=== PATIENT | male | born 1995 | race African-American/Black ===

== ENCOUNTER 2018-11-08 18:04 | Emergency (ER) | payer OTHER ==
[~2018-11-08] VITALS: Ht 175.3 cm; Wt 102.3 kg
[2018-11-08 19:28] LABS: HEMATOCRIT 43.2 % (42.0-52.0); HEMOGLOBIN 14.7 g/dl (13.5-17.5); MEAN CORPUSCULAR HEMOGLOBIN 28.7 pg (27.0-33.0); MEAN CORPUSCULAR VOLUME 84.2 fl (80.0-96.0); PLATELET COUNT, AUTOMATED 304 10^3/uL (150-450); RED BLOOD COUNT 5.13 10^6/uL (4.30-6.10); WHITE BLOOD COUNT 7.1 10^3/uL (4.0-10.0)
[2018-11-08 19:48] LABS: AMPHETAMINES LEVEL URINE NEGATIVE (NEGATIVE); BARBITURATES URINE NEGATIVE (NEGATIVE); BENZODIAZEPINES URINE NEGATIVE (NEGATIVE); CANNABINOIDS URINE NEGATIVE (NEGATIVE); COCAINE METABOLITE URINE NEGATIVE (NEGATIVE); METHADONE URINE NEGATIVE (NEGATIVE); OPIATES URINE NEGATIVE (NEGATIVE); PHENCYCLIDINE URINE NEGATIVE (NEGATIVE)
[2018-11-08 19:59] LABS: ACETAMINOPHEN LEVEL < 2.0 UG/ML (10.0-30.0); ALBUMIN 4.2 GM/DL (3.2-5.2); ALT/SGPT 45 U/L (12-78); BILIRUBIN,DIRECT 0.1 MG/DL (0.0-0.2); BILIRUBIN,TOTAL 0.4 MG/DL (0.2-1.0); BLOOD UREA NITROGEN 18 MG/DL (7-18); CALCIUM LEVEL 9.2 MG/DL (8.5-10.1); CARBON DIOXIDE LEVEL 26 MEQ/L (21-32); CHLORIDE LEVEL 105 MEQ/L (98-107); CREATININE FOR GFR 1.47 MG/DL (0.70-1.30); ETHYL ALCOHOL (ETHANOL) < 0.003 % (0.000-0.010); GLOMERULAR FILTRATION RATE > 60.0 (>60); GLUCOSE, FASTING 102 MG/DL (70-100); SALICYLATE LEVEL < 1.7 MG/DL (5.0-30.0); SODIUM LEVEL 139 MEQ/L (136-145); TOTAL PROTEIN 7.8 GM/DL (6.4-8.2)
[2018-11-08 21:20] VITALS: BP 139/89
== END 2018-11-08 21:21 | disposition home or self-care (01) ==
LOC: M ED 18:04
DX: F10.20 Alcohol dependence, uncomplicated (principal)
CPT/HCPCS: 36415; 80048; 80076; 80307; 84443; 85027; 99284; G0480

== ENCOUNTER 2019-03-18 09:52 | Emergency (ER) | payer OTHER ==
[~2019-03-18] VITALS: Ht 175.3 cm; Wt 96.8 kg
[2019-03-18] MEDS ORDERED: NS 1,000 ML IV ONE (10:15)
[2019-03-18] MEDS ORDERED: METOCLOPRAMIDE 10 MG TAB PO ONE (10:15)
[2019-03-18] MEDS ORDERED: ACETAMINOPHEN 500 MG TAB PO ONE (10:15)
[2019-03-18 10:30] LABS: BASO % 0.3 % (0.0-1.0); EOS % 0.1 % (0.0-3.0); HEMATOCRIT 42.9 % (42.0-52.0); HEMOGLOBIN 14.8 g/dl (13.5-17.5); LYMPH # 1.6 10^3/uL (1.5-6.5); LYMPH % 20.1 % (24.0-44.0); MEAN CORPUSCULAR HEMOGLOBIN 28.2 pg (27.0-33.0); MEAN CORPUSCULAR HGB CONC 34.5 g/dl (32.0-36.5); MEAN CORPUSCULAR VOLUME 81.9 fl (80.0-96.0); MONO # 0.5 10^3/uL (0.0-0.8); MONO % 6.5 % (0.0-5.0); NEUTROPHILS # 5.7 10^3/uL (1.8-7.7); NEUTROPHILS % 72.7 % (36.0-66.0); PLATELET COUNT, AUTOMATED 306 10^3/uL (150-450); RED BLOOD COUNT 5.24 10^6/uL (4.30-6.10); WHITE BLOOD COUNT 7.8 10^3/uL (4.0-10.0)
--- NOTE | 2019-03-18 10:41 | REP ---
Clinical: Trauma. Technique: AP, lateral, bilateral oblique and sunrise views right knee . Findings: The osseous structures and joint spaces are intact and normal. There is no evidence for acute fracture or dislocation. No joint effusion is appreciated. Surrounding soft tissues are unremarkable. No subcutaneous emphysema or radiodense foreign body. Impression: No acute fracture or dislocation. Electronically Signed by Kuldip Almaguer MD 03/18/2019 10:33 A
--- NOTE | 2019-03-18 10:41 | REP ---
Clinical: Trauma . Technique: AP, lateral, bilateral oblique views right ankle . Findings: Lateral swelling noted. No acute fracture or dislocation. Skeletal structures and joint spaces are intact and normal. Ankle mortise appears stable. No subcutaneous emphysema or radiodense foreign body. Impression: Lateral swelling. No acute fracture or dislocation. Electronically Signed by Kuldip Almaguer MD 03/18/2019 10:32 A
--- NOTE | 2019-03-18 10:41 | REP ---
Clinical: Trauma . Comparison: None . Technique: PA and lateral. Findings: The mediastinum and cardiac silhouette are normal. The lung lugo are clear and without acute consolidation, effusion, or pneumothorax. The skeletal structures are intact and normal. Impression: 1. No acute cardiopulmonary process. Electronically Signed by Kuldip Almaguer MD 03/18/2019 10:34 A
[2019-03-18 10:54] LABS: ALT/SGPT 38 U/L (12-78); BILIRUBIN,TOTAL 0.3 MG/DL (0.2-1.0); BLOOD UREA NITROGEN 10 MG/DL (7-18); CALCIUM LEVEL 8.7 MG/DL (8.5-10.1); CARBON DIOXIDE LEVEL 28 MEQ/L (21-32); CHLORIDE LEVEL 106 MEQ/L (98-107); CREATININE FOR GFR 1.19 MG/DL (0.70-1.30); GLOMERULAR FILTRATION RATE > 60.0 (>60); GLUCOSE, FASTING 111 MG/DL (70-100); SODIUM LEVEL 143 MEQ/L (136-145); TOTAL PROTEIN 8.1 GM/DL (6.4-8.2)
[2019-03-18] MEDS ORDERED: ISOVUE-370 76% 100ML VIAL (Q9967) As Ordered ONE (11:01)
[2019-03-18] MEDS ORDERED: MOBI4TAB PO (11:32)
[2019-03-18] MEDS ORDERED: ZANA4TAB PO (11:32)
--- NOTE | 2019-03-18 11:32 | REP ---
Clinical: Trauma . Comparison: None . Findings: The ventricles, sulci, and cisterns are normal in position and appearance. Leavitt-white differentiation is maintained. No acute intracranial hemorrhage, mass/mass effect, pathology or trauma/injury. No evidence for acute infarction. No extra-axial fluid collection. Calvarium is intact. Paranasal sinuses and mastoid air cells are clear. Impression: Normal noncontrast head CT. No evidence for acute intracranial pathology or trauma/injury. Electronically Signed by Kuldip Almaguer MD 03/18/2019 11:24 A
--- NOTE | 2019-03-18 11:37 | REP ---
Clinical: Trauma. Technique: Axial contrast enhanced images from the skull base to the thoracic inlet with coronal and sagittal re-formations using 100 ml Isovue 370 intravenous contrast material. Findings: Vascular structures in the neck are normal and there is no evidence for vascular injury. Soft tissues throughout the neck are symmetric and unremarkable. A few mildly prominent right-sided submandibular lymph nodes are identified and nonspecific. No soft tissue traumatic injury is appreciated. No hematoma or subcutaneous infiltration identified. The airway remains patent. The sinuses and mastoid air cells are clear. The osseous structures are intact. The bilateral orbits are symmetric and normal. Impression: Normal contrast enhanced CT of the neck. Electronically Signed by Kuldip Almaguer MD 03/18/2019 11:28 A
[2019-03-18 11:42] VITALS: BP 129/93
== END 2019-03-18 11:44 | disposition home or self-care (01) ==
LOC: M ED 09:52
DX: S90.01XA Contusion of right ankle, initial encounter (principal); S80.01XA Contusion of right knee, initial encounter; S10.81XA Abrasion of other specified part of neck, initial encounter; V49.59XA Passenger injured in collision with other motor vehicles in traffic accident, initial encounter; Y92.410 Unspecified street and highway as the place of occurrence of the external cause; R07.89 Other chest pain; M54.2 Cervicalgia; F10.229 Alcohol dependence with intoxication, unspecified; J30.2 Other seasonal allergic rhinitis
CPT/HCPCS: 70450; 70491; 71046; 73564; 73610; 80053; 85025; 96360; 99284; Q9967

== ENCOUNTER → 2020-06-10 | Outpatient (CLI) | payer OTHER ==
[~2020-06-10] MED LIST: MOBI4TAB PO; ZANA4TAB PO
--- NOTE | 2020-06-27 14:46 | SLEEPCENT ---
DATE: 06/10/2020 ORDERED BY: Dr. Anthony Nocturnal polysomnography with multiple sleep latency testing was ordered for evaluation of this patient with excessive somnolence, insomnia, and morning headaches as well as a history of snoring. There was 8 hours and 37 minutes of data reviewed. There was 317 minutes of sleep identified. Sleep latency was prolonged at 46.5 minutes. REM latency was also prolonged at 140 minutes. Sleep architecture once established was fair with periods of wake and some fragmentation, resulting in a reduced sleep efficiency of 61.9%. The electrocardiogram showed a sinus rhythm with an average heart rate of 62 beats per minute. Rate ranged 55-85. EEG showed fairly normal waveforms for wake and sleep. There were 67 respiratory events identified of 10 seconds in duration or greater for an apnea-hypopnea index of 12.7. The events were primarily obstructive, not exclusive to sleep stage, more frequent but not exclusive to the supine posture. Arousals from respiratory events occurred 4.5 times per hour, and oxygen desaturations were seen below 90%. Some activity was seen in the limb leads but no trains of events, and snoring was noted. As a result of these findings, the multiple sleep latency test was not performed. IMPRESSION: Obstructive sleep apnea syndrome (G47.33). Apnea-hypopnea index 12.7. RECOMMENDATION: The patient should be encouraged to return to the sleep disorder center for pressure therapy. In the interim, alcohol and sedative avoidance should be practiced and caution exercised during the operation of motor vehicles. If excessive somnolence persists after the patient's obstructive sleep apnea syndrome is addressed, repeat testing with multiple sleep latency testing may be helpful. [facility]
== END ==
LOC: M SLEEP 20:00
PROVIDERS: ATTEND Internal Medicine Pulmonary Disease
DX: G47.33 Obstructive sleep apnea (adult) (pediatric) (principal)